=== PATIENT | female | born 2005 | race Caucasian/White ===

== ENCOUNTER 2023-11-16 08:44 | Outpatient (REF) | payer BC, SELFPAY ==
--- NOTE | ~2023-11-16 | US_ITS ---
EXAMINATION: US RETROPERITONEAL COMPLETE (RENAL) CLINICAL INFORMATION: Back pain and dysuria. COMPARISON: None available. TECHNIQUE: Real-time imaging of the kidneys and bladder. FINDINGS: RIGHT KIDNEY: 10.5 x 4.0 x 5.3 cm (SAG x AP x TRV). The kidney is normal in size, contour, and echogenicity. Renal cortical thickness is normal. No calculi or focal parenchymal lesions. No hydronephrosis. LEFT KIDNEY: 10.2 x 4.7 x 4.6 cm (SAG x AP x TRV). The kidney is normal in size, contour, and echogenicity. Renal cortical thickness is normal. No calculi or focal parenchymal lesions. No hydronephrosis. BLADDER: Well distended. Bilateral ureteral jets are demonstrated. Prevoid bladder volume is 439 mL. Postvoid bladder volume is 0 mL. US/US retroperitoneal comp IMPRESSION: Unremarkable examination.
== END 2023-11-16 08:45 | disposition home or self-care (01) ==
LOC: HO.UMASIMG 08:44
PROVIDERS: Visit Provider Nurse Practitioner
DX: M54.6 Pain in thoracic spine (principal); R30.0 Dysuria
CPT/HCPCS: 76770